=== PATIENT | male | born 1990 ===

== ENCOUNTER 2018-10-23 09:40 | Inpatient (IN) | payer MEDICAID, OTHER ==
[2018-10-23 09:48] VITALS: BMI 26.2
--- NOTE | 2018-10-23 09:51 | ED PDOC ---
Arrival/HPI - General Historian: Patient - History of Present Illness Narrative History of Present Illness (Text): 10/23/18 09:44 28 y/o male, no significant pmh, nkda, psychiatric history including drug absue, transferred from [facility] attending DR. Harrington which the patient is medically clear to be admitted to the ER. Pt. is here at the ER, feeling well, admits suicidal ideation, agreed to be admitted, no numbness or tingling, no urinary symptoms, no homocidal ideation, no auditory or visual hallucination, no other medical or psychological complaints. <Fahad Al - Last Filed: 10/23/18 15:37> Past Medical History - Provider Review Nursing Documentation Reviewed: Yes <Fahad Al - Last Filed: 10/23/18 15:37> Family/Social History - Physician Review Nursing Documentation Reviewed: Yes Family/Social History: Unknown Family HX <Fahad Al - Last Filed: 10/23/18 15:37> Allergies/Home Meds <Fahad Al - Last Filed: 10/23/18 15:37> <Cipriano Trinidad - Last Filed: 10/23/18 16:01> Allergies/Adverse Reactions: Allergies No Known Allergies Allergy (Verified 10/23/18 09:48) Review of Systems - Review of Systems Constitutional: absent: Fatigue, Fevers Eyes: absent: Vision Changes ENT: absent: Hearing Changes Respiratory: absent: SOB, Cough Cardiovascular: absent: Chest Pain Gastrointestinal: absent: Abdominal Pain, Diarrhea, Nausea, Vomiting Skin: absent: Rash, Pruritis Neurological: absent: Headache, Dizziness Psychiatric: Suicidal Ideation. absent: Anxiety, Depression <Fahad Al - Last Filed: 10/23/18 15:37> Physical Exam - Systems Exam Head: Present: Atraumatic, Normocephalic Pupils: Present: PERRL Extroacular Muscles: Present: EOMI Conjunctiva: Present: Normal Mouth: Present: Moist Mucous Membranes Neck: Present: Normal Range of Motion Respiratory/Chest: Present: Clear to Auscultation, Good Air Exchange. No: Respiratory Distress, Accessory Muscle Use Cardiovascular: Present: Regular Rate and Rhythm, Normal S1, S2. No: Murmurs Abdomen: No: Tenderness, Distention, Peritoneal Signs Back: Present: Normal Inspection Upper Extremity: Present: Normal Inspection. No: Cyanosis, Edema Lower Extremity: Present: Normal Inspection. No: Edema Neurological: Present: GCS=15, CN II-XII Intact, Speech Normal Skin: Present: Warm, Dry, Normal Color. No: Rashes Psychiatric: Present: Alert, Oriented x 3, Normal Insight, Normal Concentration <AlFahad Kenneth - Last Filed: 10/23/18 15:37> Vital Signs Temp Pulse Resp BP Pulse Ox 10/23/18 10:20 98.1 F 89 18 119/73 99 10/23/18 09:41 98.4 F 51 L 18 119/67 99 <Cipriano Trinidad - Last Filed: 10/23/18 16:01> Medical Decision Making ED Course and Treatment: 10/23/18 09:53 -Labs reviewed -EKG reviewed -Pt. has no cardiopulmonary or urological complaints, UA noted to have +wbc but he is asymptomatic, urine culture ordered with one dose of macrobid. -Pt. has no medical complaints. -Pt. is medically clear and stable at this for admission. -I spoke to the PES Lee Ann orozco, discussed about the case, recommend to admit under Dr. Ale Don. Pt. agreed to be admitted. <Fahad Al Q - Last Filed: 10/23/18 15:37> - Medication Orders Current Medication Orders: Acetaminophen (Tylenol 325mg Tab) 650 mg PO Q6H PRN PRN Reason: Pain, Mild (1-3) Al Hydrox/Mg Hydrox/Simethicone (Maalox Plus 30 Ml) 30 ml PO DAILY PRN PRN Reason: Indigestion / Heartburn Last Admin: 10/23/18 12:46 Dose: 30 ml Citalopram Hydrobromide (Celexa) 10 mg PO DAILY ANA LILIA Last Admin: 10/23/18 12:46 Dose: 10 mg Clonidine HCl (Catapres) 0.1 mg PO Q12H PRN PRN Reason: Agitation Last Admin: 10/23/18 12:46 Dose: 0.1 mg Diphenhydramine HCl (Benadryl) 50 mg PO Q6 PRN PRN Reason: Agitation Diphenhydramine HCl (Benadryl) 50 mg IM Q6H PRN PRN Reason: Agitation Haloperidol (Haldol) 5 mg PO Q6H PRN; Protocol PRN Reason: Agitation Haloperidol Lactate (Haldol) 5 mg IM Q6H PRN; Protocol PRN Reason: Agitation Lorazepam (Ativan) 2 mg PO Q6 PRN; Protocol PRN Reason: Agitation Lorazepam (Ativan) 2 mg IM Q6H PRN; Protocol PRN Reason: Agitation Quetiapine Fumarate (Seroquel) 25 mg PO HS PRN; Protocol PRN Reason: Insomnia Discontinued Medications Nitrofurantoin Macrocrystals (Macrobid) 100 mg PO STAT STA; Protocol Stop: 10/23/18 09:57 Last Admin: 10/23/18 10:07 Dose: 100 mg <Cipriano Trinidad - Last Filed: 10/23/18 16:01> - PA / PATTERN MAKER PROGRAMER / Resident Statement OLIVIA has reviewed & agrees with the documentation as recorded. <Fahad Al - Last Filed: 10/23/18 15:37> - PA / PATTERN MAKER PROGRAMER / Resident Statement OLIVIA has reviewed & agrees with the documentation as recorded. <Cipriaon Trinidad - Last Filed: 10/23/18 16:01> Disposition/Present on Arrival - Present on Arrival Any Indicators Present on Arrival: No History of DVT/PE: No History of Uncontrolled Diabetes: No Urinary Catheter: No History of Decub. Ulcer: No - Disposition Have Diagnosis and Disposition been Completed?: Yes Disposition Time: 09:56 Patient Plan: Admission <Fahad Al - Last Filed: 10/23/18 15:37> <Cipriano Trinidad - Last Filed: 10/23/18 16:01> - Disposition Diagnosis: Suicidal ideation Disposition: HOSPITALIZED Patient Problems: Current Active Problems Problem Status Onset Suicidal ideation Acute Condition: STABLE
[2018-10-23] MEDS ORDERED: DiphenhydrAMINE 50 mg/ml Inj IM PRN (11:54)
[2018-10-23] MEDS ORDERED: Alum-Mag Hydrox-Simethicone Susp (30 mL) PO PRN (11:57)
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
[2018-10-24 08:27] LABS: GLUCOSE,FASTING 98 mg/dL (65-110); HDL CHOLESTEROL 46 mg/dL (29-60)
[2018-10-24 08:33] LABS: FREE T4 1.08 ng/dL (0.78-2.19)
[2018-10-24 08:38] LABS: LDL CHOLESTEROL 75 mg/dL (0-129)
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
[2018-10-24 20:17] LABS: HEPATITIS B SURFACE AG Negative (NEGATIVE)
[2018-10-24 20:23] LABS: HEPATITIS A IGM NEGATIVE (NEGATIVE); HEPATITIS B CORE AB NEGATIVE (NEGATIVE)
[2018-10-24 22:00] LABS: HEPATITIS C ANTIBODY REACTIVE (NEGATIVE)
[2018-10-25 07:03] VITALS: O2SAT 98
[2018-10-25] MEDS: Multivitamin With Minerals Tab PO SCH (08:18)
--- NOTE | 2018-10-25 15:59 | PCM.PYCHPN ---
Psychiatric Progress Note - Psychiatric Progress Note Patient seen today, length of contact: 30 minutes Patient Chief Complaint: "I feel little better, not well though " Problems Identified/Issues Discussed: Suicide/ homicide prevention, past psychiatric h/o, current psychiatric symptoms, medical problems, risk/benefits and alternatives of medications, medications compliance, coping strategies, substance abuse h/o, relapse prevention, importance of follow up with psychiatrist and therapist, discharge plan. Medical Problems: See consultation note for more detailed information Patient was seen by medical team Chronic hepatitis C, referrals were provided Diagnostic Results: Lab Results 10/24/18 16:00: Hepatitis A IgM Ab Negative, Hep Bs Antigen Negative, Hep B Core IgM Ab Negative, Hepatitis C Antibody Reactive 10/24/18 13:50: Total Creatine Kinase 46 10/24/18 07:45: RPR Nonreactive 10/24/18 07:45: Free T4 1.08, TSH 3rd Generation 2.08 10/24/18 07:45: Fasting Glucose 98, Triglycerides 72, Cholesterol 157, LDL Cholesterol Direct 75, HDL Cholesterol 46 Vital Signs Temp Pulse Resp BP Pulse Ox 10/25/18 09:14 84 119/82 10/25/18 07:00 97.7 F 54 L 19 126/71 98 10/25/18 05:54 54 L 18 142/84 100 10/24/18 23:25 90 94/58 L 10/24/18 20:36 66 114/62 10/24/18 20:30 66 18 114/62 10/24/18 16:10 9811 F H 60 17 116/73 10/24/18 06:59 98.2 F 62 18 118/73 10/24/18 04:14 106 H 105/72 10/24/18 01:54 43 L 17 150/84 10/23/18 21:21 56 L 18 134/78 10/23/18 10:20 98.1 F 89 18 119/73 99 10/23/18 09:41 98.4 F 51 L 18 119/67 99 DSM 5 Symptoms Update: Shortly, patient is a 28-year-old male with reported history of mental illness bipolar spectrum disorder, true or opioid addiction, patient came to the [facility] for evaluation and stabilization of depressive symptoms, possible suicidal ideation with a plan to overdose on drugs, in the context of. Withdrawal symptoms from opioids. patient requires further evaluation and stabilization and medication adjustment. Patient was seen and examined today next to the nursing station, patient appears to be depressed, withdrawn, irritable. Patient reported that he still feels "not good", but at the same time patient acknowledged he would might feel worse if he would be not in the hospital. Patient has transient feeling of hopelessness, helplessness, but denied any thoughts of killing himself or others. No physical symptoms of withdrawals, patient complains of muscle aches, sweats, but vitals are stable. So far patient tolerates medications well, no side effects observed or reported, aims 0, no EPS. Impression: DSM 5 Diagnosis: As per history of bipolar disorder, most recent episode mixed, severe, with no psychosis Rule out substance-induced mood disorder Opioid use disorder Opioid withdrawal symptoms Medication Change: Yes Medical Record Reviewed: Yes Consults ordered or reviewed: Medical consult appreciated Mental Status Examination - Cognitive Function Orientation: Person, Place, Situation, Time Memory: Intact Attention: Poor Concentration: Poor Association: Loose Fund of Knowledge: Poor - Mood Mood: Depressed, Anxious - Affect Affect: Constricted, Flat - Formal Thought Process Formal Thought Process: No Impairment - Suicidal Ideation Suicidal Ideation: No - Homicidal Ideation Homicidal Ideation: No Goal/Treatment Plan - Goal/Treatment Plan Need for Continued Stay: Remain at risks for inpatient hospitalization, Severe depression anxiety, Discharge may exacerbated symptoms, Severe functional impairment Progress Toward Problem(s) and Goals/Treatment Plan: Milieu/structure/supportive therapy SW consultation for discharge plan and possible inpatient rehab Med management: Multivitamins Neurontin 300 mg 3 times a day for mood stabilization, drugs cravings Seroquel for mood stabilization Clonidine/tramadol/Zofran as needed for opioid withdrawals Remeron 15 mg at the nighttime for depression Family involvement Follow up on labs Will monitor closely Pt was educated about risk/benefits and alternatives of medications, coping strategies (safety plan, suicide prevention), relapse prevention, importance of follow up with psychiatrist and therapist, stay away from drugs/alcohol/smoking Estimated Date of D/C: 10/31/18
[2018-10-26] MEDS: Multivitamin With Minerals Tab PO SCH (09:00)
--- NOTE | 2018-10-26 13:44 | PCM.PYCHPN ---
Psychiatric Progress Note - Psychiatric Progress Note Patient seen today, length of contact: 30 minutes Patient Chief Complaint: "I am not well today, I feel like sh...t" Problems Identified/Issues Discussed: Suicide/ homicide prevention, past psychiatric h/o, current psychiatric symptoms, medical problems, risk/benefits and alternatives of medications, medications compliance, coping strategies, substance abuse h/o, relapse prevention, importance of follow up with psychiatrist and therapist, discharge plan. Medical Problems: See consultation note for more detailed information Patient was seen by medical team Chronic hepatitis C, referrals were provided Diagnostic Results: Lab Results 10/24/18 16:00: Hepatitis A IgM Ab Negative, Hep Bs Antigen Negative, Hep B Core IgM Ab Negative, Hepatitis C Antibody Reactive 10/24/18 13:50: Total Creatine Kinase 46 10/24/18 07:45: RPR Nonreactive 10/24/18 07:45: Free T4 1.08, TSH 3rd Generation 2.08 10/24/18 07:45: Fasting Glucose 98, Triglycerides 72, Cholesterol 157, LDL Cholesterol Direct 75, HDL Cholesterol 46 Vital Signs Temp Pulse Resp BP Pulse Ox 10/25/18 09:14 84 119/82 10/25/18 07:00 97.7 F 54 L 19 126/71 98 10/25/18 05:54 54 L 18 142/84 100 10/24/18 23:25 90 94/58 L 10/24/18 20:36 66 114/62 10/24/18 20:30 66 18 114/62 10/24/18 16:10 9811 F H 60 17 116/73 10/24/18 06:59 98.2 F 62 18 118/73 10/24/18 04:14 106 H 105/72 10/24/18 01:54 43 L 17 150/84 10/23/18 21:21 56 L 18 134/78 10/23/18 10:20 98.1 F 89 18 119/73 99 10/23/18 09:41 98.4 F 51 L 18 119/67 99 Laboratory Results - last 24 hr 10/25/18 08:33 HIV 1&2 Ag/Ab, 4th Gen Nonreactive Temp Pulse Resp BP Pulse Ox 97.8 F 89 19 120/74 98 10/26/18 06:51 10/26/18 13:22 10/26/18 06:51 10/26/18 13:22 10/25/18 07:00 DSM 5 Symptoms Update: Shortly, patient is a 28-year-old male with reported history of mental illness bipolar spectrum disorder, true or opioid addiction, patient came to the [facility] for evaluation and stabilization of depressive symptoms, possible suicidal ideation with a plan to overdose on drugs, in the context of. Withdrawal symptoms from opioids. patient requires further evaluation and stabilization and medication adjustment. Patient was seen and examined today in his room, patient appears to be d epressed, withdrawn, irritable. As per report from the nursing staff, patient was agitated yesterday at the evening time, was punching the wall, needed to be medicated. When this telegraphic typewriter operator asked what was the reason for him to be agitated patient said that he was not feeling well, he was not able to fall asleep and to stay asleep, had withdrawal symptoms, patient reported that his mood was irritable, patient was advised to ask for as needed medications, patient contracted for safety willing to participate in treatment plan. Patient reported that he still feels "not good, like sh...t", but at the same time patient acknowledged he would might feel worse if he would be not in the hospital. No physical symptoms of withdrawals, patient complains of muscle aches, sweats, but vitals are stable. So far patient tolerates medications well, no side effects observed or reported, aims 0, no EPS. Impression: DSM 5 Diagnosis: As per history of bipolar disorder, most recent episode mixed, severe, with no psychosis Rule out substance-induced mood disorder Opioid use disorder Opioid withdrawal symptoms Medication Change: Yes (Neurontin increased, Remeron increased, Seroquel increased) Medical Record Reviewed: Yes Consults ordered or reviewed: Medical consult appreciated Mental Status Examination - Cognitive Function Orientation: Person, Place, Situation, Time Memory: Intact Attention: Poor Concentration: Poor Association: Loose Fund of Knowledge: Poor - Mood Mood: Depressed, Anxious - Affect Affect: Constricted, Flat - Formal Thought Process Formal Thought Process: No Impairment - Suicidal Ideation Suicidal Ideation: No - Homicidal Ideation Homicidal Ideation: No Goal/Treatment Plan - Goal/Treatment Plan Need for Continued Stay: Remain at risks for inpatient hospitalization, Severe depression anxiety, Discharge may exacerbated symptoms, Severe functional impairment Progress Toward Problem(s) and Goals/Treatment Plan: Milieu/structure/supportive therapy SW consultation for discharge plan and possible inpatient rehab Med management: Multivitamins Neurontin 600 mg 3 times a day for mood stabilization, drugs cravings Seroquel 100hs for mood stabilization Clonidine/tramadol/Zofran as needed for opioid withdrawals Remeron 30 mg at the nighttime for depression Family involvement Follow up on labs Will monitor closely Pt was educated about risk/benefits and alternatives of medications, coping strategies (safety plan, suicide prevention), relapse prevention, importance of follow up with psychiatrist and therapist, stay away from drugs/alcohol/smoking Estimated Date of D/C: 10/31/18
[2018-10-27] MEDS: Multivitamin With Minerals Tab PO SCH (09:35)
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
[2018-10-28] MEDS: Multivitamin With Minerals Tab PO SCH (08:22)
--- NOTE | 2018-10-28 09:14 | PCM.PYCHPN ---
Psychiatric Progress Note - Psychiatric Progress Note Patient seen today, length of contact: 30 minutes Problems Identified/Issues Discussed: I reviewed recent notes and met with patient in the dayroom. He is groomed and oriented x3. He is tense and unhappy but maybe a little more relaxed this morning. Reports that he slept poorly despite the increase in seroquel. Still feels hicks and complains of opioid withdrawal symptoms. He thinks these symptoms are affecting his ability to sleep. He seems to be medication seeking. Patient denies SI/HI or AVH. Denies any side effects (except for dry mouth) or new discomfort or pain. Patient has been a little difficult on the unit. He can be demanding, manipulative, entitled, labile and petulant on the unit. Diagnostic Results: As per history of bipolar disorder, most recent episode mixed, severe, with no psychosis Rule out substance-induced mood disorder Opioid use disorder Opioid withdrawal symptoms Medication Change: Yes (increased seroquel) Medical Record Reviewed: Yes Mental Status Examination - Cognitive Function Orientation: Person, Place, Situation, Time Memory: Intact Attention: Poor Concentration: Poor Association: Loose Fund of Knowledge: Poor - Mood Mood: Depressed, Anxious - Affect Affect: Constricted, Flat - Formal Thought Process Formal Thought Process: No Impairment - Suicidal Ideation Suicidal Ideation: No - Homicidal Ideation Homicidal Ideation: No Goal/Treatment Plan - Goal/Treatment Plan Need for Continued Stay: Remain at risks for inpatient hospitalization, Severe depression anxiety, Discharge may exacerbated symptoms, Severe functional impairment Progress Toward Problem(s) and Goals/Treatment Plan: * c/w current treatment and plan * Seroquel increased to 200 mg HS on 10/28/18 to help with mood/impulse control and off-label for insomnia * No new lab results noted thus far * Vitals reviewed and noted below: Selected Entries 10/27/18 10/28/18 06:48 07:00 Temperature 97.7 F 97.6 F Pulse Rate 64 78 Respiratory 20 18 Rate Blood Pressure 121/78 106/69 * c/w Clonidine/tramadol/Zofran as needed for opioid withdrawals Estimated Date of D/C: 10/31/18
[2018-10-29] MEDS: Multivitamin With Minerals Tab PO SCH (08:50)
--- NOTE | 2018-10-29 09:24 | PCM.PYCHPN ---
Psychiatric Progress Note - Psychiatric Progress Note Patient seen today, length of contact: 30 minutes Problems Identified/Issues Discussed: I reviewed recent notes and met with patient in the hallway. He is groomed and oriented x3. He still appears tense and unhappy but maybe a little more relaxed this morning. Reports that he slept poorly despite the increase in seroquel. Still feels hicks and complains of opioid withdrawal symptoms. He thinks these symptoms are affecting his ability to sleep. He seems to be medication seeking. Patient denies SI/HI or AVH. Denies any side effects (except for dry mouth) or new discomfort or pain. Patient has been a little difficult on the unit. He can be demanding, manipulative, entitled, labile and petulant on the unit. Thus far there have been no recent outbursts x24 hours. He remains in tenuous control. Diagnostic Results: As per history of bipolar disorder, most recent episode mixed, severe, with no psychosis Rule out substance-induced mood disorder Opioid use disorder Opioid withdrawal symptoms Medication Change: Yes (added sonata) Medical Record Reviewed: Yes Mental Status Examination - Cognitive Function Orientation: Person, Place, Situation, Time Memory: Intact Attention: Poor Concentration: Poor Association: Loose Fund of Knowledge: Poor - Mood Mood: Depressed, Anxious - Affect Affect: Constricted, Flat - Formal Thought Process Formal Thought Process: No Impairment - Suicidal Ideation Suicidal Ideation: No - Homicidal Ideation Homicidal Ideation: No Goal/Treatment Plan - Goal/Treatment Plan Need for Continued Stay: Remain at risks for inpatient hospitalization, Severe depression anxiety, Discharge may exacerbated symptoms, Severe functional impairment Progress Toward Problem(s) and Goals/Treatment Plan: * c/w current treatment and plan * Seroquel increased to 200 mg HS on 10/28/18 to help with mood/impulse control and off-label for insomnia * Sonata started 10 mg po HS on 10/29/18 for insomnia * No new lab results noted thus far * Vitals reviewed and noted below: Selected Entries 10/27/18 10/28/18 06:48 07:00 Temperature 97.7 F 97.6 F Pulse Rate 64 78 Respiratory 20 18 Rate Blood Pressure 121/78 106/69 * c/w Clonidine/tramadol/Zofran as needed for opioid withdrawals Estimated Date of D/C: 10/31/18
[2018-10-30] MEDS: Multivitamin With Minerals Tab PO SCH (07:48)
--- NOTE | 2018-10-30 10:04 | PCM.PYCHPN ---
Psychiatric Progress Note - Psychiatric Progress Note Patient seen today, length of contact: 30 minutes Problems Identified/Issues Discussed: I reviewed recent notes and met with patient in the dayroom. He is groomed and oriented x3. He still appears tense and unhappy but more relaxed than our initial introduction on Wednesday. Reports that he slept poorly despite the increase in seroquel. Patient didn't request sonata last night though it was ordered prn. Still feels hicks and complains of opioid withdrawal symptoms. He seems to be medication seeking. Patient denies SI/HI or AVH. Denies any side effects (except for dry mouth) or new discomfort or pain. Patient has been a little difficult on the unit. He can be demanding, manipulative, entitled, labile and petulant on the unit. There have been no recent behavior issues over the weekend, will continue to monitor. Diagnostic Results: As per history of bipolar disorder, most recent episode mixed, severe, with no psychosis Rule out substance-induced mood disorder Opioid use disorder Opioid withdrawal symptoms Medication Change: No ( ) Medical Record Reviewed: Yes Mental Status Examination - Cognitive Function Orientation: Person, Place, Situation, Time Memory: Intact Attention: Poor Concentration: Poor Association: Loose Fund of Knowledge: Poor - Mood Mood: Depressed, Anxious - Affect Affect: Constricted, Flat, Other (labile) - Formal Thought Process Formal Thought Process: No Impairment - Suicidal Ideation Suicidal Ideation: No - Homicidal Ideation Homicidal Ideation: No Goal/Treatment Plan - Goal/Treatment Plan Need for Continued Stay: Remain at risks for inpatient hospitalization, Severe depression anxiety, Discharge may exacerbated symptoms, Severe functional impairment Progress Toward Problem(s) and Goals/Treatment Plan: * c/w current treatment and plan * Seroquel increased to 200 mg HS on 10/28/18 to help with mood/impulse control and off-label for insomnia * Reminded patient that he can request sonata to help with insomnia * No new lab results noted thus far * Vitals reviewed and noted below: Selected Entries 10/30/18 08:01 Temperature 97.5 F L Pulse Rate 109 H Respiratory 20 Rate Blood Pressure 109/72 * c/w Clonidine/tramadol/Zofran as needed for opioid withdrawals Estimated Date of D/C: 10/31/18
[2018-10-31] MEDS: Multivitamin With Minerals Tab PO SCH (09:23)
--- NOTE | 2018-10-31 14:48 | PCM.PYCHPN ---
Psychiatric Progress Note - Psychiatric Progress Note Patient seen today, length of contact: 30 minutes Patient Chief Complaint: "I am not well today, I did not sleep, can you decrease Seroquel?" Problems Identified/Issues Discussed: Suicide/ homicide prevention, past psychiatric h/o, current psychiatric symptoms, medical problems, risk/benefits and alternatives of medications, medications compliance, coping strategies, substance abuse h/o, relapse prevention, importance of follow up with psychiatrist and therapist, discharge plan. Medical Problems: See consultation note for more detailed information Patient was seen by medical team Chronic hepatitis C, referrals were provided Diagnostic Results: Lab Results 10/24/18 16:00: Hepatitis A IgM Ab Negative, Hep Bs Antigen Negative, Hep B Core IgM Ab Negative, Hepatitis C Antibody Reactive 10/24/18 13:50: Total Creatine Kinase 46 10/24/18 07:45: RPR Nonreactive 10/24/18 07:45: Free T4 1.08, TSH 3rd Generation 2.08 10/24/18 07:45: Fasting Glucose 98, Triglycerides 72, Cholesterol 157, LDL Cholesterol Direct 75, HDL Cholesterol 46 Vital Signs Temp Pulse Resp BP Pulse Ox 10/25/18 09:14 84 119/82 10/25/18 07:00 97.7 F 54 L 19 126/71 98 10/25/18 05:54 54 L 18 142/84 100 10/24/18 23:25 90 94/58 L 10/24/18 20:36 66 114/62 10/24/18 20:30 66 18 114/62 10/24/18 16:10 9811 F H 60 17 116/73 10/24/18 06:59 98.2 F 62 18 118/73 10/24/18 04:14 106 H 105/72 10/24/18 01:54 43 L 17 150/84 10/23/18 21:21 56 L 18 134/78 10/23/18 10:20 98.1 F 89 18 119/73 99 10/23/18 09:41 98.4 F 51 L 18 119/67 99 Laboratory Results - last 24 hr 10/25/18 08:33 HIV 1&2 Ag/Ab, 4th Gen Nonreactive Temp Pulse Resp BP Pulse Ox 97.8 F 89 19 120/74 98 10/26/18 06:51 10/26/18 13:22 10/26/18 06:51 10/26/18 13:22 10/25/18 07:00 Temp Pulse Resp BP Pulse Ox 97.7 F 64 20 121/78 98 10/27/18 06:48 10/27/18 06:48 10/27/18 06:48 10/27/18 06:48 10/25/18 07:00 DSM 5 Symptoms Update: Shortly, patient is a 28-year-old male with reported history of mental illness bipolar spectrum disorder, true or opioid addiction, patient came to the [facility], [place] for evaluation and stabilization of depressive symptoms, possible suicidal ideation with a plan to overdose on drugs, in the context of. Withdrawal symptoms from opioids. patient requires further evaluation and stabilization and medication adjustment. Patient was seen and examined today at the treatment team meeting, patient appears to be depressed, withdrawn, irritable, annoyed, still complaining of opioid withdrawals despite the fact that patient stay in the hospital for more than a week. Medication seeking behavior. Over the weekend patient has been a little difficult on the unit. He can be demanding, manipulative, entitled, labile and petulant on the unit. Patient complaining of insomnia, at the same time patient staying in bed with a long, patient was advised not to have any naps during the daytime, patient verbalized understanding. So far patient tolerates medications well, no side effects observed or reported, aims 0, no EPS. Impression: DSM 5 Diagnosis: As per history of bipolar disorder, most recent episode mixed, severe, with no psychosis Rule out substance-induced mood disorder Opioid use disorder Opioid withdrawal symptoms Medication Change: Yes (Remeron discontinued, Seroquel decreased, trazodone started) Medical Record Reviewed: Yes Consults ordered or reviewed: Medical consult appreciated Mental Status Examination - Cognitive Function Orientation: Person, Place, Situation, Time Memory: Intact Attention: Poor Concentration: Poor Association: Loose Fund of Knowledge: Poor - Mood Mood: Depressed, Anxious - Affect Affect: Constricted, Flat, Other (labile) - Formal Thought Process Formal Thought Process: No Impairment - Suicidal Ideation Suicidal Ideation: No - Homicidal Ideation Homicidal Ideation: No Goal/Treatment Plan - Goal/Treatment Plan Need for Continued Stay: Remain at risks for inpatient hospitalization, Severe depression anxiety, Discharge may exacerbated symptoms, Severe functional impairment Progress Toward Problem(s) and Goals/Treatment Plan: Milieu/structure/supportive therapy SW consultation for discharge plan and possible inpatient rehab Med management: Multivitamins Neurontin 600 mg 3 times a day for mood stabilization, drugs cravings Seroquel 100hs for mood stabilization Clonidine/Zofran as needed for opioid withdrawals Remeron discontinued Trazodone 100 mg at the nighttime for depression and insomnia Tramadol discontinued Family involvement Follow up on labs Will monitor closely Pt was educated about risk/benefits and alternatives of medications, coping strategies (safety plan, suicide prevention), relapse prevention, importance of follow up with psychiatrist and therapist, stay away from drugs/alcohol/smoking Estimated Date of D/C: 11/02/18
--- NOTE | 2018-10-31 16:53 | PCM.BM ---
<Karen Morejon - Last Filed: 10/31/18 16:49> Treatment Plan Problems - Problems identified on initial assessmt HIGH RISK FOR VIOLENCE Date Initiated: 10/23/18 (HISTORY OF INCARCERATION FOR VIOLENT CRIMES) Time Initiated: 13:23 (10/31 BEHAVIOR REMAIN UNPREDICTABLE BUT IN CONTROL,VERBALIZED HE STILL FEELING DEPRESSED AND HAVING THE WITHDRAWAL SX) Assessment reference: HP, NA, Other Status: Active KNOWEDGE deficit re DRUG AND ALCOHOL ABUSE Date Initiated: 10/23/18 (10/31 AWARE OF HIS SUBSTANCE ABUSE AND WAS REFERRED TO DRUG PROGRAM) Time Initiated: 13:15 Assessment reference: HP, NA, Other Status: Active MEDS NONADHERENCE Date Initiated: 10/23/18 Time Initiated: 13:25 Date resolved: 10/31/18 Assessment reference: HP, NA, Other Status: Active Treatment assets and liabiliti Patient Assests: adapts well, self-reliant, physically healthy, negotiates basic needs, other Patient Liabilities: financial problems, poor support system, substance abuse, legal issue - Milieu Protocol Maintain good personal hygiene: daily Encourage regular showers, daily Remind patient to perform daily oral care, daily Assist patient to perform ADL's Maintain personal safety: daily Educate patient to report safety concerns to staff, daily Monitor environment for contraband/sharps Medication safety: Monitor for expected outcome, potential side effects: daily, Assess barriers to learning: daily, Assess readiness for medication education: daily Milieu Narrative: Milieu/structure/supportive therapy SW consultation for discharge plan and possible inpatient rehab Med management: Multivitamins Neurontin 600 mg 3 times a day for mood stabilization, drugs cravings Seroquel 100hs for mood stabilization Clonidine/Zofran as needed for opioid withdrawals Remeron discontinued Trazodone 100 mg at the nighttime for depression and insomnia Tramadol discontinued Family involvement Follow up on labs Will monitor closely Pt was educated about risk/benefits and alternatives of medications, coping strategies (safety plan, suicide prevention), relapse prevention, importance of follow up with psychiatrist and therapist, stay away from drugs/alcohol/smoking Family Contact Family involvement: Famliy/SO not involved Discharge/Continuing Care - Education Needs Education Needs: Patient Medication, Patient Diagnosis/Disease Process, Patient Coping Skills, Patient Anger Management skills, Patient Community resources, Patient Activities of Daily Living, Patient Uses of Medical Equipment - Discharge Discharge Criteria: Free of Suicidal thoughts, Free of Homicidal thoughts, Free of paranoid thoughts, Free of agitation, Normal sleep pattern - Treatment Team Participation Patient/Family/SO Statement: Milieu/structure/supportive therapy SW consultation for discharge plan and possible inpatient rehab Med management: Multivitamins Neurontin 600 mg 3 times a day for mood stabilization, drugs cravings Seroquel 100hs for mood stabilization Clonidine/Zofran as needed for opioid withdrawals Remeron discontinued Trazodone 100 mg at the nighttime for depression and insomnia Tramadol discontinued Family involvement Follow up on labs Will monitor closely Pt was educated about risk/benefits and alternatives of medications, coping strategies (safety plan, suicide prevention), relapse prevention, importance of follow up with psychiatrist and therapist, stay away from drugs/alcohol/smoking Treatment Plan Review - Problem HIGH RISK FOR VIOLENCE Time Initiated: 13:23 KNOWEDGE deficit re DRUG AND ALCOHOL ABUSE Time Initiated: 13:15 MEDS NONADHERENCE Time Initiated: 13:25 <Jayashree Barrientos - Last Filed: 11/01/18 12:01> Family Contact Family involvement: Famliy/SO not involved <Ale Kraus - Last Filed: 11/01/18 13:46> - Diagnosis (1) Bipolar 1 disorder Status: Acute Interventions: 11/01/18 13:44 Patient reported that he does not feel better, Patient is compliant with medications, patient denied thoughts of harming himself or others Coping strategies (2) Opioid dependence Status: Acute Interventions: 11/01/18 13:45 Patient expresses his interest to go to inpatient rehab but at the same time patient has no ID At the same time patient picking and choosing, does not want to go to rehab where work is expected
[2018-11-01] MEDS: Multivitamin With Minerals Tab PO SCH (10:02)
--- NOTE | 2018-11-01 13:59 | PCM.PYCHPN ---
Psychiatric Progress Note - Psychiatric Progress Note Patient seen today, length of contact: 30 minutes Patient Chief Complaint: "I am not living the hospital, I am not ready to go, I know that I will relapse on drugs, by the way I slept better..." Problems Identified/Issues Discussed: Suicide/ homicide prevention, past psychiatric h/o, current psychiatric symptoms, medical problems, risk/benefits and alternatives of medications, medications compliance, coping strategies, substance abuse h/o, relapse prevention, importance of follow up with psychiatrist and therapist, discharge plan. Medical Problems: See consultation note for more detailed information Patient was seen by medical team Chronic hepatitis C, referrals were provided Diagnostic Results: Lab Results 10/24/18 16:00: Hepatitis A IgM Ab Negative, Hep Bs Antigen Negative, Hep B Core IgM Ab Negative, Hepatitis C Antibody Reactive 10/24/18 13:50: Total Creatine Kinase 46 10/24/18 07:45: RPR Nonreactive 10/24/18 07:45: Free T4 1.08, TSH 3rd Generation 2.08 10/24/18 07:45: Fasting Glucose 98, Triglycerides 72, Cholesterol 157, LDL Cholesterol Direct 75, HDL Cholesterol 46 Vital Signs Temp Pulse Resp BP Pulse Ox 10/25/18 09:14 84 119/82 10/25/18 07:00 97.7 F 54 L 19 126/71 98 10/25/18 05:54 54 L 18 142/84 100 10/24/18 23:25 90 94/58 L 10/24/18 20:36 66 114/62 10/24/18 20:30 66 18 114/62 10/24/18 16:10 9811 F H 60 17 116/73 10/24/18 06:59 98.2 F 62 18 118/73 10/24/18 04:14 106 H 105/72 10/24/18 01:54 43 L 17 150/84 10/23/18 21:21 56 L 18 134/78 10/23/18 10:20 98.1 F 89 18 119/73 99 10/23/18 09:41 98.4 F 51 L 18 119/67 99 Laboratory Results - last 24 hr 10/25/18 08:33 HIV 1&2 Ag/Ab, 4th Gen Nonreactive Temp Pulse Resp BP Pulse Ox 97.8 F 89 19 120/74 98 10/26/18 06:51 10/26/18 13:22 10/26/18 06:51 10/26/18 13:22 10/25/18 07:00 Temp Pulse Resp BP Pulse Ox 97.7 F 64 20 121/78 98 10/27/18 06:48 10/27/18 06:48 10/27/18 06:48 10/27/18 06:48 10/25/18 07:00 DSM 5 Symptoms Update: Shortly, patient is a 28-year-old male with reported history of mental illness bipolar spectrum disorder, true or opioid addiction, patient came to the [facility] for evaluation and stabilization of depressive symptoms, possible suicidal ideation with a plan to overdose on drugs, in the context of. Withdrawal symptoms from opioids. patient requires further evaluation and stabilization and medication adjustment. Patient was seen and examined today next to the nursing station, patient reported that he slept better, patient reported that his mood is "depressed", patient reported "I think I am suffering from depression", patient has a tendency of dramatization of his symptoms when talking to this com writer, when patient with his peers patient seems to be happier, socializing with others, has fair appetite and sleep. Patient is still complaining of opioid withdrawals despite the fact that patient stay in the hospital for more than a week. Medication seeking behavior. Over the weekend patient has been a little difficult on the unit. He can be lurdes nding, manipulative, entitled, labile and petulant on the unit. So far patient tolerates medications well, no side effects observed or reported, aims 0, no EPS. Due to technical issues, his medications were not adjusted, patient reported that he slept well on Remeron/Sonata/Seroquel, will keep these medications and doses. Impression: DSM 5 Diagnosis: As per history of bipolar disorder, most recent episode mixed, severe, with no psychosis Rule out substance-induced mood disorder Opioid use disorder Opioid withdrawal symptoms Medication Change: No Medical Record Reviewed: Yes Consults ordered or reviewed: Medical consult appreciated Mental Status Examination - Cognitive Function Orientation: Person, Place, Situation, Time Memory: Intact Attention: Poor (Some improvement) Concentration: Poor (Some improvement) Association: WNL Fund of Knowledge: Poor - Mood Mood: Depressed ("I think I am suffering from depression"), Anxious - Affect Affect: Constricted, Flat, Other (labile) - Speech Speech: Appropriate - Formal Thought Process Formal Thought Process: No Impairment - Suicidal Ideation Suicidal Ideation: No - Homicidal Ideation Homicidal Ideation: No Goal/Treatment Plan - Goal/Treatment Plan Need for Continued Stay: Remain at risks for inpatient hospitalization, Severe depression anxiety, Discharge may exacerbated symptoms, Severe functional impairment Progress Toward Problem(s) and Goals/Treatment Plan: Milieu/structure/supportive therapy SW consultation for discharge plan and possible inpatient rehab Med management: Multivitamins Neurontin 600 mg 3 times a day for mood stabilization, drugs cravings Seroquel 100hs for mood stabilization Clonidine/Zofran as needed for opioid withdrawals Remeron 45 mg at the nighttime for depression and insomnia Tramadol discontinued Family involvement Follow up on labs Will monitor closely Pt was educated about risk/benefits and alternatives of medications, coping strategies (safety plan, suicide prevention), relapse prevention, importance of follow up with psychiatrist and therapist, stay away from drugs/alcohol/smoking Estimated Date of D/C: 11/02/18
[2018-11-02] MEDS: Multivitamin With Minerals Tab PO SCH (07:58)
--- NOTE | 2018-11-02 14:45 | PCM.PYCHPN ---
Psychiatric Progress Note - Psychiatric Progress Note Patient seen today, length of contact: 30 minutes Patient Chief Complaint: "I am still not doing good, I acted out earlier..." Problems Identified/Issues Discussed: Suicide/ homicide prevention, past psychiatric h/o, current psychiatric symptoms, medical problems, risk/benefits and alternatives of medications, medications compliance, coping strategies, substance abuse h/o, relapse prevention, importance of follow up with psychiatrist and therapist, discharge plan. Medical Problems: See consultation note for more detailed information Patient was seen by medical team Chronic hepatitis C, referrals were provided Diagnostic Results: Lab Results 10/24/18 16:00: Hepatitis A IgM Ab Negative, Hep Bs Antigen Negative, Hep B Core IgM Ab Negative, Hepatitis C Antibody Reactive 10/24/18 13:50: Total Creatine Kinase 46 10/24/18 07:45: RPR Nonreactive 10/24/18 07:45: Free T4 1.08, TSH 3rd Generation 2.08 10/24/18 07:45: Fasting Glucose 98, Triglycerides 72, Cholesterol 157, LDL Cholesterol Direct 75, HDL Cholesterol 46 Vital Signs Temp Pulse Resp BP Pulse Ox 10/25/18 09:14 84 119/82 10/25/18 07:00 97.7 F 54 L 19 126/71 98 10/25/18 05:54 54 L 18 142/84 100 10/24/18 23:25 90 94/58 L 10/24/18 20:36 66 114/62 10/24/18 20:30 66 18 114/62 10/24/18 16:10 9811 F H 60 17 116/73 10/24/18 06:59 98.2 F 62 18 118/73 10/24/18 04:14 106 H 105/72 10/24/18 01:54 43 L 17 150/84 10/23/18 21:21 56 L 18 134/78 10/23/18 10:20 98.1 F 89 18 119/73 99 10/23/18 09:41 98.4 F 51 L 18 119/67 99 Laboratory Results - last 24 hr 10/25/18 08:33 HIV 1&2 Ag/Ab, 4th Gen Nonreactive Temp Pulse Resp BP Pulse Ox 97.8 F 89 19 120/74 98 10/26/18 06:51 10/26/18 13:22 10/26/18 06:51 10/26/18 13:22 10/25/18 07:00 Temp Pulse Resp BP Pulse Ox 97.7 F 64 20 121/78 98 10/27/18 06:48 10/27/18 06:48 10/27/18 06:48 10/27/18 06:48 10/25/18 07:00 DSM 5 Symptoms Update: Shortly, patient is a 28-year-old male with reported history of mental illness bipolar spectrum disorder, true or opioid addiction, patient came to the [facility] for evaluation and stabilization of depressive symptoms, possible suicidal ideation with a plan to overdose on drugs, in the context of. Withdrawal symptoms from opioids. patient requires further evaluation and stabilization and medication adjustment. Patient was seen and examined today at the tx team meeting pt said he is not doing well, as per RNs, pt was agitated over night, threw a pillow to the corridor, saying that tiesha did it. pt now is willing to go to rehab, initially pt refused to go to [facility], now acting in the way that he is willing to go there. pt is still irritable, unrealistic expectations, pt wants to be assisted with his ID, but it is impossible from psych inpatient, pt is already was assigned with a foster care case manager from [facility], who could assist him with ID. Over the weekend patient has been a little difficult on the unit. He can be demanding, manipulative, entitled. So far patient tolerates medications well, no side effects observed or reported, aims 0, no EPS. pt was offered to start depakote and risperdal, risk/benefits and alternatives discussed, pt willing to take them. Impression: DSM 5 Diagnosis: As per history of bipolar disorder, most recent episode mixed, severe, with no psychosis Rule out substance-induced mood disorder Opioid use disorder Opioid withdrawal symptoms Medication Change: Yes (seroquel d/c, risperdal and depakote started) Medical Record Reviewed: Yes Consults ordered or reviewed: Medical consult appreciated Mental Status Examination - Cognitive Function Orientation: Person, Place, Situation, Time Memory: Intact Attention: Poor (Some improvement) Concentration: Poor (Some improvement) Association: WNL Fund of Knowledge: Poor - Mood Mood: Depressed ("I think I am suffering from depression"), Anxious - Affect Affect: Constricted, Flat, Other (labile) - Speech Speech: Appropriate - Formal Thought Process Formal Thought Process: No Impairment - Suicidal Ideation Suicidal Ideation: No - Homicidal Ideation Homicidal Ideation: No Goal/Treatment Plan - Goal/Treatment Plan Need for Continued Stay: Remain at risks for inpatient hospitalization, Severe depression anxiety, Discharge may exacerbated symptoms, Severe functional impairment Progress Toward Problem(s) and Goals/Treatment Plan: Milieu/structure/supportive therapy SW consultation for discharge plan and possible inpatient rehab Med management: Multivitamins Neurontin 600 mg 3 times a day for mood stabilization, drugs cravings Seroquel d/c risperdal 1mg po bid and hs for irritability and mood stabilization depakote 250mg po bid and hs for mood stabilization Clonidine/Zofran as needed for opioid withdrawals Remeron 45 mg at the nighttime for depression and insomnia Tramadol discontinued Family involvement Follow up on labs Will monitor closely Pt was educated about risk/benefits and alternatives of medications, coping strategies (safety plan, suicide prevention), relapse prevention, importance of follow up with psychiatrist and therapist, stay away from drugs/alcohol/smoking Estimated Date of D/C: 11/04/18
[2018-11-02] MEDS: Divalproex 250 mg DR (BID formulation) PO SCH (17:11)
[2018-11-02] MEDS ORDERED: Divalproex 250 mg DR (BID formulation) PO SCH (22:00)
[2018-11-03 07:17] VITALS: BP 120/76; PULSE 106; RESP 18; TEMP 97.7
[2018-11-03] MEDS: Multivitamin With Minerals Tab PO SCH (08:03)
[2018-11-03] MEDS: Divalproex 250 mg DR (BID formulation) PO SCH (08:04)
--- NOTE | 2018-11-03 15:08 | PCM.PYCHDC ---
Mental Status Examination - Mental Status Examination Orientation: Person, Place, Situation, Time Memory: Intact Mood: Neutral Affect: Constricted (But more reactive and mood congruent) Speech: Appropriate Attention: WNL Concentration: WNL Association: WNL Fund of Knowledge: WNL Formal Thought Process: No Impairment Description of patient's judgement and insight: Pt has improved insight into mental and medical illness, pt was compliant with medications and unit rules and regulations, pt was attending therapy groups, was calm, cooperative, socially appropriate, no behavioral incidents, no agitation, no aggression. Psychotic Thoughts and Behaviors: Pt denied v/a/t hallucinations, denied paranoid ideations, pt does not appear to be psychotic, and thought process is goal directed. Suicidal Ideation: No Current Homicidal Ideation?: No Plan: pt adamantly denied thoughts of harming self or others denied intent or plan. Discharge Summary - Discharge Note Reason for Hospitalization: Hospital for evaluation and stabilization of depressive symptoms, possible s uicidal ideation Psychiatric History (includes Medical, Family, Personal Hx): See HPI Laboratory Data: 10/25/18 10/24/18 10/24/18 08:33 16:00 13:50 Fasting Glucose Total Creatine Kinase 46 Triglycerides Cholesterol LDL Cholesterol Direct HDL Cholesterol Free T4 TSH 3rd Generation RPR Hepatitis A IgM Ab Negative Hep Bs Antigen Negative Hep B Core IgM Ab Negative Hepatitis C Antibody Reactive HIV 1&2 Ag/Ab, 4th Gen Nonreactive 10/24/18 10/24/18 10/24/18 07:45 07:45 07:45 Fasting Glucose 98 Total Creatine Kinase Triglycerides 72 Cholesterol 157 LDL Cholesterol Direct 75 HDL Cholesterol 46 Free T4 1.08 TSH 3rd Generation 2.08 RPR Nonreactive Hepatitis A IgM Ab Hep Bs Antigen Hep B Core IgM Ab Hepatitis C Antibody HIV 1&2 Ag/Ab, 4th Gen Vital Signs Temp Pulse Resp BP Pulse Ox 11/03/18 07:00 97.7 F 106 H 18 120/76 11/02/18 16:00 86 118/70 11/01/18 16:43 102 H 123/85 11/01/18 16:03 102 H 123/85 11/01/18 07:00 69 19 123/76 10/31/18 16:00 91 H 120/73 10/31/18 06:36 98.2 F 80 18 124/83 10/30/18 16:48 90 111/70 10/30/18 13:03 109 H 109/72 10/30/18 08:01 97.5 F L 109 H 20 109/72 10/29/18 16:46 85 108/66 10/29/18 07:00 97.7 F 103 H 18 98/67 L 10/28/18 16:21 83 110/68 10/28/18 07:00 97.6 F 78 18 106/69 10/27/18 06:48 97.7 F 64 20 121/78 10/26/18 16:00 53 L 129/72 10/26/18 13:22 89 120/74 10/26/18 06:51 97.8 F 60 19 120/70 10/25/18 16:00 56 L 117/63 10/25/18 09:14 84 119/82 10/25/18 07:00 97.7 F 54 L 19 126/71 98 10/25/18 05:54 54 L 18 142/84 100 10/24/18 23:25 90 94/58 L 10/24/18 20:36 66 114/62 10/24/18 20:30 66 18 114/62 10/24/18 16:10 9811 F H 60 17 116/73 10/24/18 06:59 98.2 F 62 18 118/73 10/24/18 04:14 106 H 105/72 10/24/18 01:54 43 L 17 150/84 10/23/18 21:21 56 L 18 134/78 10/23/18 10:20 98.1 F 89 18 119/73 99 10/23/18 09:41 98.4 F 51 L 18 119/67 99 Consultations:: List each consultation separately and include: 1. Reason for request. 2. Findings. 3. Follow-up Consultations: Medical consult appreciated Summary of Hospital Course include:: 1. Description of specific treatment plan utilized for patients during their course of treatmen. 2. Summarize the time- course for resolution of acute symptoms and/or regressed behaviors. 3. Describe issues identified and worked on during hospitalization. 4. Describe medication utilized. 5. Describe medical problems identified and treated. 6. Reassessment of suicide risk Summary of Hospital Course: Shortly, patient is a 28-year-old male with reported history of mental illness bipolar spectrum disorder, true or opioid addiction, patient came to the [facility] for evaluation and stabilization of depressive symptoms, possible suicidal ideation with a plan to overdose on drugs, in the context of. Withdrawal symptoms from opioids. patient requires further evaluation and stabilization and medication adjustment. Please see admission note for more detailed information. During this hospitalization patient showed manipulative, demanding, at times disrespectful behavior. At the same time there were no agitation, no physical aggression. Patient was stabilized on the following medications: Seroquel patient did not like Risperdal was started and titrated up to 1 mg twice a day for mood stabilization and irritability Depakote 500 mg twice a day for mood stabilization Sonata 10 mg at the nighttime for insomnia Remeron 45 mg at the nighttime for depression and insomnia Patient tolerated medications well, no side effects observed or reported, aims 0, no EPS. Patient had symptomatic treatment for opioid withdrawals, tramadol as needed, clonidine as needed, Zofran as needed, no physical symptoms or withdrawals but patient have subjective feelings that he is getting "hot/cold" all vital signs are within normal limits In regards of the social problems, social media marketing manager did a great job in regards off referral patient to [facility] inpatient rehab, patient might be accepted even with no documents, but patient did not want to go to this particular rehab because patient will be mandated to work. Other rehabs will not accept patient because patient has no ID. Lab Results 10/24/18 07:45: Free T4 1.08, TSH 3rd Generation 2.08 10/24/18 07:45: Fasting Glucose 98, Triglycerides 72, Cholesterol 157, LDL Cholesterol Direct 75, HDL Cholesterol 46 Vital Signs Temp Pulse Resp BP Pulse Ox 10/24/18 06:59 98.2 F 62 18 118/73 10/24/18 04:14 106 H 105/72 10/24/18 01:54 43 L 17 150/84 10/23/18 21:21 56 L 18 134/78 10/23/18 10:20 98.1 F 89 18 119/73 99 10/23/18 09:41 98.4 F 51 L 18 119/67 99 Over the course of this hospitalization pt was attending groups, pt also had medication management, had therapeutic milieu. Overall pt improved significantly, pt's affect became brighter, pt was less depressed, has realistic future oriented plans, pt also does not appear to be psychotic, or anxious, pt was socially appropriate, no behavioral issues, pts insight improved as well and soon pt deemed to be ready for discharge. At the time of the discharge patient pose no imminent danger to self or others, will be following up at [facility] a dual diagnosis program, as well as [facility] (bottle caser met pt in the unit), information about follow up appointment, time and address provided to the pt, (see SW note for more detailed information). It is a patient responsibility to follow up with outpatient clinic, PMD as well as specialists In case patient will need to obtain results of studies pending at discharge, patient was provided with contact information of Psychiatric Inpatient unit [phone] as well as Medical Record Department [phone], as well as [facility] team [phone]. Nicotine patch was provided Naltrexone treatment is not indicated because patient used opioids less than 10days ago Counseling about smoking and drugs cessation provided AA meetings as well as [facility] smoking cessation treatment program information was provided by the pt was provided with prescriptions (see medication reconciliation form) Pt was educated about safety plan in case of worsening of symptoms or in case of suicidal or homicidal ideation call 911 or go to the nearest ER, also was educated to take meds as prescribed and stay away from drugs, pt verbalized understanding. - Diagnosis (1) Bipolar 1 disorder Status: Chronic Priority: Medium (2) Opioid dependence Status: Chronic Priority: High - Final Diagnosis (DSM 5) Condition upon Discharge: STABLE Disposition: HOME/ ROUTINE Follow-up Treatment Plan: At the time of the discharge patient pose no imminent danger to self or others, will be following up at [facility] a dual diagnosis program, as well as [facility] (bottle caser met pt in the unit), information about follow up appointment, time and address provided to the pt, (see SW note for more detailed information). It is a patient responsibility to follow up with outpatient clinic, PMD as well as specialists Prescriptions/Medication Reconciliation: Divalproex [Depakote DR(*BID*)] 500 mg PO AMHS #30 ect Folic Acid 1 mg PO DAILY #14 tab Gabapentin [Neurontin] 600 mg PO TID #45 tab Mirtazapine [Remeron] 45 mg PO HS #14 tab Multimineral/Multivitamin [Therapeutic-M Tab] 1 tab PO 0800 #14 tab Nicotine 14 mg/24 hr [Nicoderm CQ] 1 patch TD DAILY #14 patch risperiDONE [RisperDAL Tab] 1 mg PO BID #30 tab Thiamine [Vitamin B1 Tab] 100 mg PO DAILY #14 tab Zaleplon [Sonata] 10 mg PO HS #14 cap - Smoking Cessation Smoking Cessation Medication prescribed: Yes - Antipsychotic Medications Pt discharged on 2 or more routine antipsychotic medications: No
== END 2018-11-03 14:19 | disposition home or self-care (01) | DRG 753 ==
LOC: ED 09:40 → MERGE 09:57 → ERH 09:57 → UNMERGE 09:57 → EDUNIT# 09:57 → PSYC 10:45
PROVIDERS: ADMIT Psychiatry & Neurology Psychiatry; ATTEND Psychiatry & Neurology Psychiatry
DX: F31.63 Bipolar disorder, current episode mixed, severe, without psychotic features (principal); F11.23 Opioid dependence with withdrawal; B18.2 Chronic viral hepatitis C; R45.851 Suicidal ideations; F17.210 Nicotine dependence, cigarettes, uncomplicated; G47.00 Insomnia, unspecified; F10.10 Alcohol abuse, uncomplicated; Y90.9 Presence of alcohol in blood, level not specified; Z87.19 Personal history of other diseases of the digestive system; Z76.5 Malingerer [conscious simulation]

== ENCOUNTER 2018-11-20 15:48 | Inpatient (IN) | payer MEDICAID, OTHER ==
[2018-11-20 15:48] VITALS: BMI 26.2
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
[2018-11-20] MEDS ORDERED: Alum-Mag Hydrox-Simethicone Susp (30 mL) PO PRN (17:05)
[2018-11-20] MEDS ORDERED: DiphenhydrAMINE 50 mg/ml Inj IM PRN (17:46)
--- NOTE | 2018-11-20 18:24 | PCM.BM ---
<Roberto Rivera - Last Filed: 11/20/18 18:21> Treatment Plan Problems - Problems identified on initial assessmt ALTERD SLEEP PATTERN Date Initiated: 11/20/18 Time Initiated: 18:22 Assessment reference: HP, NA, Other Status: Active FEELING OF WORTHLESSNESS Date Initiated: 11/20/18 Time Initiated: 18:22 Assessment reference: HP, Other HELPLESSNESS/HELPLESSNEESS Date Initiated: 11/20/18 Time Initiated: 18:24 Assessment reference: HP, NA, Other Treatment assets and liabiliti Patient Assests: adapts well, cooperative, self-reliant, physically healthy, negotiates basic needs, cognitively intact, other Patient Liabilities: poor support system, relationship conflicts, substance abuse Discharge/Continuing Care - Education Needs Education Needs: Patient Medication, Patient Diagnosis/Disease Process, Patient Coping Skills, Patient Anger Management skills, Patient Community resources, Patient Activities of Daily Living, Patient Uses of Medical Equipment, Patient Health Practices/Safety, Patient Personal Hygiene/Grooming, Patient Aftercare Safety Plan - Discharge Discharge Criteria: Tolerates medication w/o severe side effects, Free of Suicidal thoughts, Free of Homicidal thoughts, Free of paranoid thoughts, Free of agitation, Normal sleep pattern, No longer exhibiting s/s of withdrawal Discharge to:: Substance Abuse Rehab <Ale Kraus - Last Filed: 11/21/18 08:48> - Diagnosis (1) Cocaine abuse Status: Acute Interventions: 11/21/18 08:49 Maintaining sobriety Relapse prevention Possible rehabilitation Motivational interviewing 12-step programs: AA meetings (2) Opioid dependence Status: Acute Interventions: 11/21/18 08:49 Monitoring withdrawal symptoms Medical detoxification Pharmacotherapy for alcohol/benzos/opioid dependence Maintaining sobriety Relapse prevention Possible rehabilitation Motivational interviewing 12-step programs: AA meetings (3) Bipolar 1 disorder Status: Chronic Interventions: 11/21/18 08:49 Psychoeducation Psychopharmacology/adjustment of medications as needed/ monitoring possible side effects Monitor blood level of mood stabilizers Evaluate pt on daily basis Compliance with medications and follow up appointments Suicide and homicide risk assessment and prevention, coping strategies, safety plan Relapse prevention Reduction of symptoms Improve functional status Family involvement As outpatient: cognitive behavioral therapy <Jayashree Barrientos - Last Filed: 11/21/18 16:53> Family Contact Family involvement: Famliy/SO not involved
[2018-11-21 07:07] VITALS: TEMP 97.9
[2018-11-21 08:48] LABS: GLUCOSE,FASTING 74 mg/dL (65-110); HDL CHOLESTEROL 74 mg/dL (29-60)
[2018-11-21 08:59] LABS: LDL CHOLESTEROL 61 mg/dL (0-129)
[2018-11-21 09:02] LABS: FREE T4 0.97 ng/dL (0.78-2.19)
--- NOTE | 2018-11-21 09:22 | CARD ---
APPROVED REPORT Date of service: 11/20/2018 EKG Measurement Heart [id number] <Conclusion> Normal sinus rhythm with sinus arrhythmia Normal ECG
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
[2018-11-21] MEDS: Divalproex 250 mg DR (BID formulation) PO SCH (17:19)
[2018-11-21] MEDS: Multivitamin With Minerals Tab PO SCH (17:19)
[2018-11-22 07:23] VITALS: RESP 20
--- NOTE | 2018-11-22 09:09 | PCM.PYCHPN ---
Psychiatric Progress Note - Psychiatric Progress Note Patient seen today, length of contact: 30min Patient Chief Complaint: "I do not remember how I ended up here" Problems Identified/Issues Discussed: 48hr notice, [facility] screening process, medications risk/benefits and alternatives, suicide prevention Medical Problems: see HPI Diagnostic Results: Lab Results 11/21/18 08:20: RPR Nonreactive 11/21/18 08:20: Fasting Glucose 74, Triglycerides 74, Cholesterol 153, LDL Cholesterol Direct 61, HDL Cholesterol 74 H 11/21/18 08:20: Free T4 0.97, TSH 3rd Generation 1.80 Vital Signs Temp Pulse Resp BP Pulse Ox 11/22/18 07:22 97.9 F 82 20 125/78 11/21/18 15:56 94 H 129/78 11/21/18 07:00 97.9 F 66 18 124/76 11/20/18 22:08 76 124/67 11/20/18 16:25 98 F 85 11/20/18 15:50 97.5 F L 65 18 131/84 99 DSM 5 Symptoms Update: Shortly patient is a 28-year-old male with reported history of mood spectrum disorder as well as polysubstance abuse and dependence, patient was transferred from [facility] where she came for evaluation of depressive symptoms as well as possible suicidal ideation. This life insurance underwriter is very familiar with this patient from the previous admission to the psychiatric inpatient unit here in [place] which took place less than a month ago. Since that time patient was not compliant with her medications, was not participating in an aftercare plan, relapsed on drugs, urine drug screen was positive for heroin, cocaine and alcohol, considering all the above patient required further evaluation and stabilization and medication adjustment. Patient was seen and examined, pt presents to be irritable, annoyed and unsatisfied. as per RN report pt is irritable, impulsive, sarcastic. pt denied thoughts of harming self or others, denied psychosis, but pt is poor and unreliable, was providing inconsistent stories, at the [facility] verbalize any thoughts of harming self or others in emergency department. so far pt tolerates meds well, no side effects observed or reported, AIMS 0, no EPS. pt submitted 48 hr notice, requesting discharge, pt's impulses are unpredictable, will screen for involuntary commitment. DSM 5 Diagnosis: As per history of bipolar disorder, most recent episode mixed, severe, with no psychosis Rule out substance-induced mood disorder Opioid use disorder r/o Opioid withdrawal symptoms cocaine abuse alcohol abuse/dependence r/o alcohol withdrawals Medication Change: Yes Medical Record Reviewed: Yes Consults ordered or reviewed: pt was seen by medical team in ED. Mental Status Examination - Cognitive Function Orientation: Person, Place Memory: Impaired Attention: Poor Concentration: Poor Association: WNL Fund of Knowledge: WNL - Mood Mood: Depressed (irritable) - Affect Affect: Flat - Formal Thought Process Formal Thought Process: No Impairment - Suicidal Ideation Suicidal Ideation: No - Homicidal Ideation Homicidal Ideation: No Goal/Treatment Plan - Goal/Treatment Plan Need for Continued Stay: Remain at risks for inpatient hospitalization, Severe depression anxiety, Discharge may exacerbated symptoms, Severe functional impairment Progress Toward Problem(s) and Goals/Treatment Plan: Milieu/structure/supportive therapy SW consultation for discharge plan and possible inpatient rehab Med management: Multivitamins Neurontin 300 mg 3 times a day for mood stabilization, drugs cravings Risperdal for mood stabilization Depakote for mood stabilization Librium for possible alcohol withdrawals Clonidine/tramadol/Zofran as needed for opioid withdrawals Family involvement Follow up on labs Will monitor closely Pt was educated about risk/benefits and alternatives of medications, coping strategies (safety plan, suicide prevention), relapse prevention, importance of follow up with psychiatrist and therapist, stay away from drugs/alcohol/smoking pt submitted 48 hr notice, will initiate screening process by [facility] Estimated Date of D/C: 11/24/18
[2018-11-22] MEDS: Divalproex 250 mg DR (BID formulation) PO SCH ×2 (10:17→16:00)
[2018-11-22] MEDS: Multivitamin With Minerals Tab PO SCH (10:18)
[2018-11-22 16:16] VITALS: BP 119/72; PULSE 84; O2SAT 98
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
--- NOTE | 2018-11-23 15:25 | PCM.PYCHDC ---
Mental Status Examination - Mental Status Examination Orientation: Person, Place, Situation, Time Memory: Intact Mood: Neutral Affect: Constricted Speech: Appropriate Attention: Poor (Baseline) Concentration: Poor (Baseline) Association: WNL Fund of Knowledge: Poor (Baseline) Formal Thought Process: No Impairment Description of patient's judgement and insight: Patient has limited insight into addiction to drugs Psychotic Thoughts and Behaviors: Patient denies visual, tactile, auditory hallucinations, denies paranoia, patient does not present to be psychotic. Suicidal Ideation: No Current Homicidal Ideation?: No Plan: Patient denied thoughts of harming himself or others. Discharge Summary - Discharge Note Reason for Hospitalization: Patient was admitted for depression, possible suicidal ideation. Psychiatric History (includes Medical, Family, Personal Hx): See HPI Laboratory Data: Lab Results 11/21/18 08:20: RPR Nonreactive 11/21/18 08:20: Fasting Glucose 74, Triglycerides 74, Cholesterol 153, LDL Cholesterol Direct 61, HDL Cholesterol 74 H 11/21/18 08:20: Free T4 0.97, TSH 3rd Generation 1.80 Vital Signs Temp Pulse Resp BP Pulse Ox 11/22/18 16:14 97.9 F 84 119/72 98 11/22/18 07:22 97.9 F 82 20 125/78 11/21/18 15:56 94 H 129/78 11/21/18 07:00 97.9 F 66 18 124/76 11/20/18 22:08 76 124/67 11/20/18 16:25 98 F 85 11/20/18 15:50 97.5 F L 65 18 131/84 99 Consultations:: List each consultation separately and include: 1. Reason for request. 2. Findings. 3. Follow-up Consultations: pt was seen by medical team in ED. Patient complaining of the swelling of his face, got 1 dose of Benadryl, patient was seen by medical team, was cleared for discharge November 22, 2018 Summary of Hospital Course include:: 1. Description of specific treatment plan utilized for patients during their course of treatmen. 2. Summarize the time- course for resolution of acute symptoms and/or regressed behaviors. 3. Describe issues identified and worked on during hospitalization. 4. Describe medication utilized. 5. Describe medical problems identified and treated. 6. Reassessment of suicide risk Summary of Hospital Course: Shortly patient is a 28-year-old male with reported history of mood spectrum disorder as well as polysubstance abuse and dependence, patient was transferred from [facility] where she came for evaluation of depressive symptoms as well as possible suicidal ideation. This sign writer hand is very familiar with this patient from the previous admission to the psychiatric inpatient unit here in [place] which took place less than a month ago. Since that time patient was not compliant with her medications, was not participating in an aftercare plan, relapsed on drugs, urine drug screen was positive for heroin, cocaine and alcohol, considering all the above patient required further evaluation and stabilization and medication adjustment. Please see admission note for more detailed information. During treatment team patient submitted 48-hour notice, requesting discharge. Patient was screened by [facility], patient was found to be not committable for screening. This sign writer hand had no other choice other than discharge patient AGAINST MEDICAL ADVICE. Patient contracted for safety, patient was advised in case of the worsening of the symptoms come back to the emergency room, patient verbalized understanding. Patient can arrange his own aftercare plan. No prescriptions were given to the patient. At the time of the discharge patient pose no imminent danger to self or others, will be following up with psychiatrist of his choice. It is a patient responsibility to follow up with outpatient clinic, PMD as well as specialists . - Diagnosis (1) Cocaine abuse Status: Chronic Priority: High (2) Opioid dependence Status: Chronic Priority: High (3) Bipolar 1 disorder Status: Chronic Priority: Medium - Final Diagnosis (DSM 5) Condition upon Discharge: FAIR Disposition: AGAINST MEDICAL ADVICE Follow-up Treatment Plan: Patient can arrange his own aftercare plan. - Smoking Cessation Smoking Cessation Medication prescribed: No Reason for not providing: Patient was discharged AGAINST MEDICAL ADVICE, was not interested - Antipsychotic Medications Pt discharged on 2 or more routine antipsychotic medications: No
== END 2018-11-22 18:06 | disposition left against medical advice (07) | DRG 885 ==
LOC: ED 15:48 → ERH 16:10 → PSYC 16:54
PROVIDERS: ADMIT Psychiatry & Neurology Psychiatry; ATTEND Psychiatry & Neurology Psychiatry
DX: F31.63 Bipolar disorder, current episode mixed, severe, without psychotic features (principal); K50.90 Crohn's disease, unspecified, without complications; F39 Unspecified mood [affective] disorder; F14.10 Cocaine abuse, uncomplicated; F11.90 Opioid use, unspecified, uncomplicated; F10.20 Alcohol dependence, uncomplicated; F17.210 Nicotine dependence, cigarettes, uncomplicated; J45.909 Unspecified asthma, uncomplicated; Z91.14 Patient's other noncompliance with medication regimen